=== PATIENT | female | born 1995 | race Caucasian/White ===

== ENCOUNTER → 2021-02-25 | Outpatient (CLI) | payer OTHER ==
[2021-02-26 06:06] LABS: RUBELLA AB IGG-REFLAB 5.18 index (Immune >0.99)
== END | disposition home or self-care (01) ==
LOC: LABMN 13:20
PROVIDERS: ATTEND Internal Medicine
DX: Z02.1 Encounter for pre-employment examination (principal)
CPT/HCPCS: 86706; 86735; 86762; 86765

== ENCOUNTER 2021-05-28 08:25 | Emergency (ER) | payer OTHER ==
[~2021-05-28] VITALS: Ht 157.5 cm; Wt 90.9 kg
[2021-05-28 08:31] VITALS: BP 142/78
[2021-05-28] MEDS ORDERED: DiphenhydrAMINE HCL 25 MG CAPSULE PO ONE (09:15)
== END 2021-05-28 09:15 | disposition home or self-care (01) ==
LOC: EMS 08:29
DX: T63.481A Toxic effect of venom of other arthropod, accidental (unintentional), initial encounter (principal); S90.562A Insect bite (nonvenomous), left ankle, initial encounter; S70.362A Insect bite (nonvenomous), left thigh, initial encounter; Y92.89 Other specified places as the place of occurrence of the external cause; Y93.89 Activity, other specified; Y99.8 Other external cause status
CPT/HCPCS: 99283